=== PATIENT | female | born 1950 | race Caucasian/White ===

== ENCOUNTER 2022-02-20 10:30 | Outpatient (RCR) | payer OTHER, SELFPAY | END 2022-02-20 16:27 | disposition home or self-care (01) | PROVIDERS: PCP Family Medicine; Visit Provider Orthopaedic Surgery Hand Surgery | DX: M18.11 Unilateral primary osteoarthritis of first carpometacarpal joint, right hand (principal); Z51.89 Encounter for other specified aftercare | CPT/HCPCS: 97035; 97110; 97140; 97165; 97535; X5282 ==

== ENCOUNTER 2023-02-12 13:00 | Outpatient (RCR) | payer OTHER, SELFPAY ==
[2023-02-01 10:37] LABS: Basophils Absolute Auto 0.01 K/uL (0.00-0.30); Basophils Percent Auto 0.2 % (0.0-3.0); Eosinophils Absolute Auto 0.09 K/uL (0.00-0.50); Eosinophils Percent Auto 1.7 % (0.0-7.0); Hematocrit 38.7 % (33.0-51.0); Hemoglobin* 12.5 gm/dL (12.0-16.0); Lymphocytes Absolute Auto 1.98 K/uL (0.90-2.90); Lymphocytes Percent Auto 37.5 % (20-44); Mean Corpuscular HGB Conc 32 gm/dL (32-36); Mean Corpuscular Hemoglobin 29 pg (26-34); Mean Corpuscular Volume 89 fL (80-100); Neutrophils Absolute Auto 2.62 K/uL (1.7-7.0); Neutrophils Percent Auto 49.6 % (42.0-72.0); Platelet Count* 171 K/uL (140-440); RDW Coefficient of Variation % 13.2 % (11.5-15.5); Red Blood Count 4.36 m/uL (4.00-5.20); White Blood Count* 5.28 K/uL (4.50-11.00)
[2023-02-01 10:38] LABS: Slide Review Reflex No
[2023-02-01 10:50] LABS: Albumin* 4.6 g/dL (3.3-5.0); Chloride* 109 mmol/L (96-114); Sodium* 140 mmol/L (135-149)
[2023-02-01 10:51] LABS: Potassium* 4.7 mmol/L (3.6-5.1)
[2023-02-01 10:53] LABS: Alkaline Phosphatase* 81 U/L (40-150); Anion Gap 5 mEq/L (7-15); Aspartate Amino Transferase* 32 U/L (12-35); Bilirubin Total* 0.4 mg/dL (0.1-1.5); Blood Urea Nitrogen* 18 mg/dL (7-30); Carbon Dioxide* 26 mmol/L (20-32); Estimated Glomerular Filt Rate 59 ml/min; Lactate Dehydrogenase* 196 U/L (120-246); Total Protein* 7.3 g/dL (6.0-8.3)
[2023-02-01 10:54] LABS: Alanine Aminotransferase* 24 U/L (4-35); Calcium* 9.4 mg/dL (8.4-10.6); Glucose* 98 mg/dL (60-115)
[2023-02-03 07:24] LABS: Immunoglobulin A 54 mg/dL (68-408); Immunoglobulin G 712 mg/dL (768-1632); Immunoglobulin M 138 mg/dL (35-263); Kappa Qnt Free Light Chains 18.63 mg/L (3.30-19.40); Kappa-Lambda Qt FLC W/ Ratio 1.68 (0.26-1.65); Lambda Qnt Free Light Chains 11.08 mg/L (5.71-26.30)
[2023-02-03 18:14] LABS: Beta-2-Microglob Serum/Plasma 3.6 mg/L (<=3.0)
== END 2023-07-31 23:59 | disposition home or self-care (01) ==
LOC: CCIC 13:00
PROVIDERS: PCP Family Medicine; Visit Provider Internal Medicine Hematology & Oncology
DX: D47.2 Monoclonal gammopathy (principal)
CPT/HCPCS: 36415; 80053; 82232; 82784; 83520; 83615; 85025; 86334; 99212; 99213; 99214

== ENCOUNTER 2024-01-08 13:41 | Outpatient (CLI) | payer OTHER, SELFPAY ==
--- NOTE | 2024-01-08 14:00 | CT_ITS ---
Patient: VELASQUEZ CLINE Facility:?[facility] RIS Patient ID:?[id number] Site Patient ID:?[id number]. Site :?[id number] Study:?CT-Sinus W/O-01/08/2024 2:00:07 PM Ordering Physician:Isabelle Liz Final Report: INDICATION: Chronic sinusitis TECHNIQUE: CT sinus without contrast. COMPARISON: None. FINDINGS: Bilateral frontal, maxillary and sphenoid sinuses are well pneumatized. Bilateral maxillary sinus bony osteoma is present. Ethmoidal air cells show minimal mucosal thickening. There is small polypoidal soft tissue density lesions into the right posterior choana measuring about 9-10 millimeter as seen on series number 6; image 78 and 75. Bilateral sphenoethmoidal and frontal recesses are patent. Bilateral ostiomeatal complexes are patent. Nasal septum is in midline. Intraspinal no osteosclerosis or hyperdense secretions to suspect chronic or fungal sinusitis. No air-fluid levels in the sinuses. Mastoid air cells are well pneumatized. Bilateral orbits demonstrates no acute findings. Included neck fat planes are maintained. No mass effect at the skull base. IMPRESSION: IMPRESSION:No evidence of sinusitis. Suggestion of two small polypoid soft tissue lesions into the right posterior choana, direct visualization is recommended. Please note that all CT scans at this facility use dose modulation, iterative reconstruction, and/or weight-based dosing when appropriate to reduce radiation dose to as low as reasonably achievable. Dictated by Tripp Restrepo MD @ 01/09/2024 11:16:22 AM Signed by:?Tripp Restrepo MD @01/09/2024 11:16:22 AM (Electronic Signature)
== END 2024-01-08 13:42 | disposition home or self-care (01) ==
LOC: CT 13:42
PROVIDERS: PCP Family Medicine; Visit Provider Otolaryngology
DX: J32.9 Chronic sinusitis, unspecified (principal); J33.1 Polypoid sinus degeneration
CPT/HCPCS: 70486

== ENCOUNTER 2024-02-11 11:40 | Outpatient (RCR) | payer OTHER, SELFPAY ==
[2024-01-28 11:09] LABS: Basophils Absolute Auto 0.03 K/uL (0.00-0.30); Basophils Percent Auto 0.6 % (0.0-3.0); Eosinophils Percent Auto 2.2 % (0.0-7.0); Hematocrit 38.6 % (33.0-51.0); Hemoglobin* 12.2 gm/dL (12.0-16.0); Immature Granulocytes Abs Auto 0.01 K/uL (0.00-0.30); Immature Granulocytes Pct Auto 0.2 %; Lymphocytes Absolute Auto 1.69 K/uL (0.90-2.90); Lymphocytes Percent Auto 36.5 % (20-44); Mean Corpuscular HGB Conc 32 gm/dL (32-36); Mean Corpuscular Hemoglobin 28 pg (26-34); Mean Corpuscular Volume 90 fL (80-100); Monocytes Percent Auto 8.9 % (0.0-11.0); Neutrophils Absolute Auto 2.39 K/uL (1.7-7.0); Neutrophils Percent Auto 51.6 % (42.0-72.0); Platelet Count* 153 K/uL (140-440); RDW Coefficient of Variation % 12.9 % (11.5-15.5); Red Blood Count 4.29 m/uL (4.00-5.20); White Blood Count* 4.63 K/uL (4.50-11.00)
[2024-01-28 11:13] LABS: Slide Review Reflex No
[2024-01-28 11:24] LABS: Albumin* 4.3 g/dL (3.3-5.0); Chloride* 107 mmol/L (96-114)
[2024-01-28 11:25] LABS: Potassium* 4.2 mmol/L (3.6-5.1); Sodium* 140 mmol/L (135-149)
[2024-01-28 11:27] LABS: Alkaline Phosphatase* 80 U/L (40-150); Anion Gap 7 mEq/L (7-15); Aspartate Amino Transferase* 26 U/L (12-35); Bilirubin Total* 0.4 mg/dL (0.1-1.5); Blood Urea Nitrogen* 18 mg/dL (7-30); Carbon Dioxide* 26 mmol/L (20-32); Estimated Glomerular Filt Rate 59 ml/min; Lactate Dehydrogenase* 157 U/L (120-246); Total Protein* 6.7 g/dL (6.0-8.3)
[2024-01-28 11:28] LABS: Alanine Aminotransferase* 21 U/L (4-35); Calcium* 9.5 mg/dL (8.4-10.6); Glucose* 73 mg/dL (60-115)
[2024-01-31 18:49] LABS: Albumin 4.24 g/dL (3.75-5.01); Alpha 1 Globulin 0.23 g/dL (0.19-0.46); Alpha 2 Globulin 0.61 g/dL (0.48-1.05); Immunofixation IFE Done; Immunoglobulin A 35 mg/dL (68-408); Immunoglobulin G 694 mg/dL (768-1632); Immunoglobulin M 125 mg/dL (35-263); Kappa Qnt Free Light Chains 13.83 mg/L (3.30-19.40); Lambda Qnt Free Light Chains 6.93 mg/L (5.71-26.30); Total Protein, Serum 6.4 g/dL (6.3-8.2)
== END 2024-07-26 23:59 | disposition home or self-care (01) ==
LOC: CCIC 11:40
PROVIDERS: PCP Family Medicine; Referring Provider Family Medicine; Visit Provider Internal Medicine Hematology & Oncology
DX: D47.2 Monoclonal gammopathy (principal); C96.9 Malignant neoplasm of lymphoid, hematopoietic and related tissue, unspecified
CPT/HCPCS: 36415; 80053; 82784; 83520; 83615; 84155; 84165; 85025; 86334; 99213; G0463

== ENCOUNTER 2024-02-11 16:45 | Outpatient (RCR) | payer OTHER, SELFPAY | END 2024-05-07 09:14 | disposition home or self-care (01) | PROVIDERS: PCP Family Medicine; Visit Provider Orthopaedic Surgery Hand Surgery | DX: M79.643 Pain in unspecified hand (principal); M65.30 Trigger finger, unspecified finger; R53.1 Weakness; M25.649 Stiffness of unspecified hand, not elsewhere classified; Z51.89 Encounter for other specified aftercare | CPT/HCPCS: 97035; 97110; 97140; 97166; X5282 ==

== ENCOUNTER 2024-09-07 15:45 | Outpatient (RCR) | payer MEDICARE, SELFPAY | END 2025-01-05 23:59 | disposition home or self-care (01) | PROVIDERS: PCP Family Medicine; Visit Provider Orthopaedic Surgery Sports Medicine | DX: M17.0 Bilateral primary osteoarthritis of knee (principal); M51.362 Other intervertebral disc degeneration, lumbar region with discogenic back pain and lower extremity pain; Z51.89 Encounter for other specified aftercare | CPT/HCPCS: 97110; 97112; 97140; 97162 ==